=== PATIENT | female | born 1995 | race Caucasian/White ===

== ENCOUNTER 2019-11-17 17:02 | Emergency (ER) | payer BC ==
[~2019-11-17] VITALS: Ht 157.5 cm; Wt 97.5 kg
[2019-11-17] MEDS ORDERED: ALPR1 PO (17:15)
[2019-11-17] MEDS ORDERED: Prozac20 MG PO (17:15)
[2019-11-17] MEDS ORDERED: IBUP400 PO (18:08)
[2019-11-17] MEDS ORDERED: Percocet 5-3251 EACH PO (18:08)
== END 2019-11-17 18:36 | disposition home or self-care (01) ==
LOC: ER 17:02
DX: S82.61XA Displaced fracture of lateral malleolus of right fibula, initial encounter for closed fracture (principal); F17.290 Nicotine dependence, other tobacco product, uncomplicated; W01.0XXA Fall on same level from slipping, tripping and stumbling without subsequent striking against object, initial encounter; X50.1XXA Overexertion from prolonged static or awkward postures, initial encounter; Y93.01 Activity, walking, marching and hiking
CPT/HCPCS: 29515; 73610; 96372-59; 99283-25; A9270; A9270-GY; J1170